=== PATIENT | male | born 1980 | race Hispanic/Latino ===

== ENCOUNTER 2018-11-25 21:21 | Inpatient (IN) | payer MEDICAID, SELFPAY ==
[2018-11-25 21:22] VITALS: BP 109/64; PULSE 109; RESP 20; TEMP 37.6; O2SAT 98; BMI 24.2
[2018-11-25] MEDS: Ondansetron ODT 4 MG Tablet PO (22:02)
[2018-11-25 23:07] VITALS: BMI 23.1; BMI 23.2
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
[2018-11-25 23:23] VITALS: BP 108/71; PULSE 73; RESP 16; TEMP 37.6
[2018-11-25 23:34] LABS: Amphetamine Urine VISTA NEGATIVE (<1000 ng/mL); Barbiturate Urine VISTA NEGATIVE (< 200 ng/mL); Benzodiazepine Urine VISTA NEGATIVE (< 200 ng/mL); Cocaine Urine VISTA NEGATIVE (< 300 ng/mL); Ecstacy Urine VISTA POSITIVE (< 500 ng/mL); Methadone Urine VISTA NEGATIVE (< 300 ng/mL); PCP Urine VISTA NEGATIVE (< 25 ng/mL); THC Urine VISTA POSITIVE (< 50 ng/mL); Vista UDS pH Range 6
[2018-11-25] MEDS: Buprenorphine HCl 2 MG TAB.SUBL SL (23:35)
[2018-11-25] MEDS: Zolpidem Tartrate 5 MG Tablet PO (23:35)
[2018-11-25] MEDS: traZODone 50 MG Tablet PO (23:35)
[2018-11-25 23:42] LABS: Absolute Lymphocyte Count 1.97 X10^3/ul (0.83-4.51); Absolute Neutrophil Count 10.1 X10^3/uL (2.0-7.7); Basophil# 0.07 X10^3/uL; Basophil% 0.5 % (0-1); Eosinophil# 0.03 X10^3/uL; Eosinophils% 0.2 % (0-5); Hematocrit 41.3 % (40-54); Hemoglobin 13.7 g/dl (13.0-16.5); Lymphocyte # 1.97 X10^3/ul (4.0); Mean Corp Hgb Conc 33.2 g/gl (32-36); Mean Corpuscular Hgb 29.8 pg (27.0-32.0); Mean Platelet Vol. 9.3 fl (6.2-12.0); Monocyte# 0.98 X10^3/uL; Monocyte% 7.4 % (0-10); Neutrophil # 10.09 X10^3/uL (2.7-7.7); Neutrophil % 76.7 % (47-70); Platelet Count 304 K/mm3 (150-450); RBC Distribution Width CV 13.3 % (11.6-14.6); RBC Distribution Width SD 43.5 fl (35.1-43.9); Red Blood Count 4.59 M/mm3 (4.6-6.2); White Blood Count 13.2 K/mm3 (4.4-11.0)
--- NOTE | 2018-11-25 23:43 | ED.VISSUMM ---
- ER Visit Summary Date of Service: 11/25/18 Chief Complaint: Opiate withdrawal History of Present Illness: The patient is a 38 M with no primary care physician. He reports that he has been using IV heroin 2-3 times a day for the past 3 months. His last use was at noon. States he is beginning to go through withdrawal now. He spoke with [facility] prior to arrival and they told him that he would be admitted to the hospital. Patient complains of abdominal cramping, nausea and vomiting. States that he has muscle aches. He reports that he is having a subjective fever and chills. Physical Examination: Vitals: Stable. Afebrile. General: Well-nourished and well-developed. Head: Normocephalic atraumatic. Neck: Supple, no lymphadenopathy. No JVD. Nontender. Cardiovascular: Regular rate and rhythm. No murmurs. Respiratory: No respiratory distress. Clear to auscultation bilaterally. Abdominal: Soft, nontender, nondistended, normal bowel sounds. No guarding, rebound, or peritoneal signs. Back: Nontender. Extremities: Nontender, no edema. Skin: Normal color, no rash. No erythema or induration to suggest infection. Neurologic: Alert and oriented ?3. Cranial nerves II through XII are intact. Normal strength and sensation. Psych: Normal affect. Emergency Department Course and Treatment: Patient's CINA score is 11. He was treated with Zofran here. Treatment Plan: Patient was discussed with Dr. Nelson. He will be admitted for further evaluation and treatment. Disposition: Admitted in stable condition. Impression: 1. Opiate withdrawal. This note was generated with [employer] dictation software. It may contain incorrect words, spelling, and punctuation that were not noted in review of the chart prior to signing ED Disposition - Plan for ED Patient: Disposition: Acute Care [facility]
[2018-11-25 23:44] LABS: POSITIVE COUNT NO; POSITIVE DIFFERENTIAL NO; POSITIVE MORPHOLOGY NO
[2018-11-25] MEDS: Dicyclomine 10 MG Capsule 20 MG PO (23:45)
[2018-11-26 00:18] LABS: Alcohol, Blood (Medical)-Serum < 3.0 mg/dL
[2018-11-26 00:26] LABS: ALB/GLOB Ratio 1.1 RATIO (0.9-2.4); AST(SGOT) 24 U/L (15-37); Alanine Aminotransfer ALT/SGPT 38 U/L (16-61); Albumin, Serum 4.1 g/dL (3.2-5.0); Alkaline Phosphatase 62 U/L (45-117); Anion Gap 8 (5-15); BUN 10 mg/dL (7-18); Calcium,Total 8.9 mg/dL (8.5-10.1); Chloride 99 mmol/L (98-107); EST Glomerular Filtration Rate 89 mL/min (>60); Est Glom Filt Rate - Afr Amer 108 mL/min (>60); Estimated Creatinine Clearance 90.38 ml/min; Globulin 3.8 g/dL (2.2-4.2); Glucose 96 mg/dL (74-106); Lipase 51 U/L (73-393); Potassium 3.4 mmol/L (3.5-5.1); Protein, Total 7.9 g/dL (6.4-8.2); Sodium Level 134 mmol/L (136-145)
[2018-11-26 02:14] VITALS: BP 105/57; PULSE 62; RESP 18; TEMP 36.4
[2018-11-26] MEDS: Methocarbamol 750 MG Tablet PO ×4 (02:17→23:30)
[2018-11-26] MEDS: hydrOXYzine PAM 25 MG Capsule 50 MG PO ×4 (02:17→23:30)
[2018-11-26] MEDS: cloNIDine HCl 0.1 MG Tablet PO (02:17)
[2018-11-26 06:35] VITALS: BP 84/54; PULSE 53; RESP 16; TEMP 36.9
[2018-11-26] MEDS: Buprenorphine HCl 2 MG TAB.SUBL SL ×3 (06:38→23:30)
[2018-11-26 10:32] VITALS: BP 103/66; PULSE 53; RESP 18; TEMP 37
[2018-11-26] MEDS: Pramipexole Di-HCl 0.25 MG Tablet PO (10:37)
[2018-11-26] MEDS: Dicyclomine 10 MG Capsule 20 MG PO ×3 (10:37→23:30)
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
[2018-11-26 14:54] VITALS: BP 111/50; PULSE 53; RESP 20; TEMP 36.9
[2018-11-26] MEDS: chlordiazePOXIDE 25 MG Capsule 50 MG PO ×2 (14:57→19:48)
[2018-11-26] MEDS: Ibuprofen 600 MG Tablet PO (15:01)
[2018-11-26] MEDS: Gabapentin 300 MG Capsule PO ×2 (15:02→21:17)
[2018-11-26] MEDS: Acetaminophen 500 MG Tablet PO (17:15)
[2018-11-26 19:45] VITALS: BP 105/60; PULSE 60; RESP 14; TEMP 36.6
[2018-11-26] MEDS: Ondansetron ODT 4 MG Tablet PO (19:50)
[2018-11-26] MEDS: traZODone 50 MG Tablet PO (21:17)
[2018-11-26 23:29] VITALS: BP 108/58; PULSE 60; RESP 14; TEMP 36.9
[2018-11-26] MEDS: Zolpidem Tartrate 5 MG Tablet PO (23:30)
[2018-11-27 02:21] VITALS: BP 106/51; PULSE 64; RESP 14; TEMP 36.4
[2018-11-27] MEDS: Ibuprofen 600 MG Tablet PO ×2 (02:28→13:31)
[2018-11-27] MEDS: chlordiazePOXIDE 25 MG Capsule 50 MG PO ×3 (02:28→17:08)
[2018-11-27] MEDS: Pramipexole Di-HCl 0.25 MG Tablet PO ×2 (02:29→20:54)
[2018-11-27 06:45] VITALS: BP 97/52; PULSE 52; RESP 14; TEMP 36.7
[2018-11-27] MEDS: hydrOXYzine PAM 25 MG Capsule 50 MG PO ×3 (06:56→20:54)
[2018-11-27] MEDS: Buprenorphine HCl 2 MG TAB.SUBL SL ×2 (06:56→15:50)
[2018-11-27] MEDS: Methocarbamol 750 MG Tablet PO ×3 (06:56→20:54)
[2018-11-27 07:14] LABS: Absolute Lymphocyte Count 1.78 X10^3/ul (0.83-4.51); Absolute Neutrophil Count 2.7 X10^3/uL (2.0-7.7); Basophil# 0.09 X10^3/uL; Basophil% 1.7 % (0-1); Eosinophil# 0.11 X10^3/uL; Hematocrit 41.7 % (40-54); Hemoglobin 13.4 g/dl (13.0-16.5); Lymphocyte # 1.78 X10^3/ul (4.0); Lymphocyte % 32.9 % (19-41); Mean Corp Hgb Conc 32.1 g/gl (32-36); Mean Corpuscular Hgb 29.5 pg (27.0-32.0); Mean Corpuscular Volume 91.9 fL (80-94); Monocyte# 0.69 X10^3/uL; Monocyte% 12.8 % (0-10); Neutrophil # 2.73 X10^3/uL (2.7-7.7); Neutrophil % 50.4 % (47-70); Platelet Count 321 K/mm3 (150-450); RBC Distribution Width CV 13.9 % (11.6-14.6); RBC Distribution Width SD 45.9 fl (35.1-43.9); Red Blood Count 4.54 M/mm3 (4.6-6.2); White Blood Count 5.4 K/mm3 (4.4-11.0)
[2018-11-27 07:24] LABS: POSITIVE COUNT NO; POSITIVE DIFFERENTIAL NO; POSITIVE MORPHOLOGY NO
[2018-11-27 07:25] LABS: Anion Gap 9 (5-15); BUN 15 mg/dL (7-18); BUN/Creat Ratio 16.8 RATIO (10-20); Calcium,Total 8.5 mg/dL (8.5-10.1); Chloride 104 mmol/L (98-107); Creatinine, Serum 0.89 mg/dL (0.70-1.30); EST Glomerular Filtration Rate 101 mL/min (>60); Est Glom Filt Rate - Afr Amer 123 mL/min (>60); Estimated Creatinine Clearance 101.55 ml/min; Glucose 99 mg/dL (74-106); Potassium 4.2 mmol/L (3.5-5.1); Sodium Level 138 mmol/L (136-145)
[2018-11-27] MEDS: Gabapentin 300 MG Capsule PO ×3 (07:31→22:18)
[2018-11-27 08:05] VITALS: PULSE 55
[2018-11-27] MEDS: Dicyclomine 10 MG Capsule 20 MG PO (08:17)
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
[2018-11-27 12:00] VITALS: BP 108/63; PULSE 66; RESP 18; TEMP 36.8
--- NOTE | 2018-11-27 15:49 | NURSING ---
Motrin and tylenol nor kpad effective for back pain. Pt encouraged to get up and sit in chair, ambulate in [place].
[2018-11-27 17:12] VITALS: BP 108/70; PULSE 58; RESP 16; TEMP 36.5
[2018-11-27 20:44] VITALS: BP 108/70; PULSE 65; RESP 18; TEMP 37.1
[2018-11-27] MEDS: cloNIDine HCl 0.1 MG Tablet PO (20:54)
[2018-11-27] MEDS: traZODone 50 MG Tablet PO (22:18)
[2018-11-27] MEDS: Zolpidem Tartrate 5 MG Tablet PO (22:20)
[2018-11-28] MEDS: Methocarbamol 750 MG Tablet PO (02:59)
[2018-11-28] MEDS: hydrOXYzine PAM 25 MG Capsule 50 MG PO (02:59)
[2018-11-28] MEDS: Buprenorphine HCl 2 MG TAB.SUBL SL (02:59)
[2018-11-28] MEDS: Gabapentin 300 MG Capsule PO (06:11)
[2018-11-28 06:12] VITALS: BP 110/68; PULSE 68; RESP 18; TEMP 36.8
--- NOTE | 2018-11-28 07:35 | PCM.DC ---
- Discharge Diagnoses Current Active Problems: Current Active and Chronic Problems Acute opioid withdrawal (Acute) Drug abuse (Chronic) Chronic pain syndrome (Chronic) Depression (Chronic) Reason(s) for Visit for Discharge Instructions: Acute opioid withdrawal You will use the following diet at home:: Regular Your food should be the consistency of: Regular Your liquids should be the consistency of: Regular/Thin Discharge Activity: Return to Normal Activity Weight Bearing Status: Weight bearing as tolerated Additional Instructions: You are advised to quit using illicit drugs. Continue with your scheduled outpatient plan. Allergies/Adverse Reactions: Allergies No Known Allergies Allergy (Verified 11/25/18 21:25) Medications to take at Discharge Quetiapine Fumarate [Seroquel] 100 mg PO DAILY 11/25/18 Primary Care Physician: Care Physician,No Primary [Primary Care Provider] - Please follow up with your Primary Care Physician in: within 2 weeks Test Results: Test results from this visit will be discussed in further detail at your follow-up appointment, if applicable. Proposed Discharge Date: 11/28/18
--- NOTE | 2018-11-28 07:39 | DCINST_ITS ---
- Discharge Diagnoses Current Active Problems: Current Active and Chronic Problems Acute opioid withdrawal (Acute) Drug abuse (Chronic) Chronic pain syndrome (Chronic) Depression (Chronic) Reason(s) for Visit for Discharge Instructions: Acute opioid withdrawal You will use the following diet at home:: Regular Your food should be the consistency of: Regular Your liquids should be the consistency of: Regular/Thin Discharge Activity: Return to Normal Activity Weight Bearing Status: Weight bearing as tolerated Additional Instructions: You are advised to quit using illicit drugs. Continue with your scheduled outpatient plan. Allergies/Adverse Reactions: Allergies No Known Allergies Allergy (Verified 11/25/18 21:25) Medications to take at Discharge Quetiapine Fumarate [Seroquel] 100 mg PO DAILY 11/25/18 Primary Care Physician: Care Physician,No Primary [Primary Care Provider] - Please follow up with your Primary Care Physician in: within 2 weeks Test Results: Test results from this visit will be discussed in further detail at your follow- up appointment, if applicable. Proposed Discharge Date: 11/28/18
--- NOTE | 2018-11-28 07:39 | PCM.DC.SUM ---
Discharge Date and Diagnosis Date of Admission: 11/25/18 Date of Discharge: 11/28/18 - Primary Discharge Diagnosis Active and Suspected Problems Acute opioid withdrawal (Acute) Hypokalemia Substance abuse disorder - Secondary Discharge Diagnosis Chronic Problems Drug abuse (Chronic) Chronic pain syndrome (Chronic) Depression (Chronic) Hospital Course and Treatment None Operations: None Procedures: None Summary of Care Provided: The patient is a 38 year old M with past medical history of IV heroin use who was admitted for medical stabilization to the [facility]. Patient was noted to be mildly hypokalemia that was replaced. He admits to use of IV heroin as well as benzodiazepines and marijuana. Urine drug screen was positive for opiates, methamphetamines and cannabinoids. Patient was continued on his chronic depression medication. He continued to be stable and was discharged to follow-up with the outpatient program as scheduled Subjective: On the day of discharge, patient was seen and examined. He denied any complains. He feels improved. - Physical Exam General: Alert, Oriented x3, Cooperative, No apparent distress HEENT: Atraumatic, PERRLA, EOMI, Normocephalic Oral: Moist Mucosa Neck: Supple, No JVD, Negative Carotid Bruits Lungs: Clear to auscultation, Normal air movement Cardiovascular: Regular rate, Regular Rhythm, Normal S1, Normal S2, No murmurs Abdomen: Bowel Sounds Present, Soft, Non Tender, Non-Distended, No Hepato-splenomegaly Extremities: No edema, Capillary Refill Less than 3 Seconds Skin: No rashes, No breakdown Musculoskeletal: No Tenderness to Palpation of Joints or Extremities Lymphatic: No Cervical, Supraclavicular, or Inguinal Adenopathy Neurological: Cranial nerves II-XII grossly intact Psych/Mental Status: Normal Affect, Appropriate Vital Signs Temp Pulse Resp BP Pulse Ox 98.3 F 68 18 110/68 98 11/28/18 06:12 11/28/18 06:12 11/28/18 06:12 11/28/18 06:12 11/25/18 21:22 Oxygen Delivery Method Room Air Weight: 65.2 kg Body Mass Index (BMI) 23.1 Intake and Output for Last 24 Hours 11/26/18 11/27/18 11/28/18 23:59 23:59 23:59 Intake Total 2300 / 2300 1000 / 1000 480 / 480 Balance 2300 / 2300 1000 / 1000 480 / 480 Discharge Diet: No Restrictions Discharge Activity: Return to Normal Activity Weight Bearing Status: Weight bearing as tolerated Home Medications: Medications to take at Discharge Quetiapine Fumarate [Seroquel] 100 mg PO DAILY 11/25/18 Primary Care Physician: Care Physician,No Primary [Primary Care Provider] - Please follow up with your Primary Care Physician in: within 2 weeks Disposition: Home Minutes spent on discharge:: 25 Patient Condition:: Stable Medical Necessity - Tobacco Use Smoking Status: Current every day smoker Tobacco Use: Cigarettes Meaningful Use Info Meaningful Use Diagnoses (Choose all that apply): None applicable Code Visit Inpatient E&M: 06871 Disch Hosp
[2018-11-28] MEDS: chlordiazePOXIDE 25 MG Capsule 50 MG PO ×2 (08:51)
[2018-11-28 08:52] VITALS: BP 104/73; PULSE 81; RESP 18; TEMP 37.2
[2018-11-28] MEDS: Ibuprofen 600 MG Tablet PO (08:59)
== END 2018-11-28 10:54 | disposition home or self-care (01) | DRG 773 ==
LOC: ED 22:09 → MS3 22:52
PROVIDERS: Internal Medicine; Admitting Provider Hospitalist; Emergency Provider Emergency Medicine; Referring Provider Hospitalist; Visit Provider Internal Medicine
DX: F11.23 Opioid dependence with withdrawal (principal); G89.4 Chronic pain syndrome; F32.9 Major depressive disorder, single episode, unspecified; F19.10 Other psychoactive substance abuse, uncomplicated; E87.6 Hypokalemia; F17.210 Nicotine dependence, cigarettes, uncomplicated
CPT/HCPCS: 36415; 80048; 80053; 80307; 80320; 83690; 85025; 99281; 99406; G0480